=== PATIENT | female | born 1965 | race African-American/Black ===

== ENCOUNTER 2022-08-22 03:34 | Outpatient (CLI) | payer SELFPAY | END 2022-08-22 03:35 | disposition EMS.NT | LOC: EMS 03:34 | DX: Z72.89 Other problems related to lifestyle (principal) ==

== ENCOUNTER 2024-07-15 14:30 | Outpatient (CLI) | payer OTHER | END 2024-07-15 14:31 | disposition home or self-care (01) | LOC: DI 14:30 | PROVIDERS: ATTEND Nurse Practitioner Family | DX: I10 Essential (primary) hypertension (principal) | CPT/HCPCS: 93307 ==